=== PATIENT | male | born 1985 | race Caucasian/White ===

== ENCOUNTER 2019-10-24 11:49 | Emergency (ER) | payer OTHER ==
[~2019-10-24] VITALS: Ht 188 cm; Wt 122.5 kg
[~2019-10-24 11:49] MED LIST: OXYACE5T PO; RXOXYACE PO
[2019-10-24] MEDS ORDERED: IBUP600 PO (14:51)
[2019-10-24] MEDS ORDERED: Robaxin-750750 MG PO (14:51)
== END 2019-10-24 15:09 | disposition home or self-care (01) ==
LOC: ER 11:49
DX: S80.02XA Contusion of left knee, initial encounter (principal); S20.219A Contusion of unspecified front wall of thorax, initial encounter; V53.5XXA Driver of pick-up truck or van injured in collision with car, pick-up truck or van in traffic accident, initial encounter; Z88.5 Allergy status to narcotic agent; Z79.899 Other long term (current) drug therapy; Z79.891 Long term (current) use of opiate analgesic; J45.909 Unspecified asthma, uncomplicated; Z87.891 Personal history of nicotine dependence
CPT/HCPCS: 71250; 73562-LT; 99284-25

== ENCOUNTER 2021-04-30 13:05 | Emergency (ER) | payer OTHER ==
[~2021-04-30] VITALS: Ht 188 cm; Wt 120.2 kg
[~2021-04-30 13:05] MED LIST changes: +IBUP600 PO; +Robaxin-750750 MG PO
[2021-04-30 13:44] LABS: BASOPHILS ABSOLUTE AUTO 0.06 K/mm3 (0.00-0.23); BASOPHILS PERCENT AUTO 1 % (0-2); EOSINOPHILS PERCENT AUTO 3 % (0-6); Hematocrit 44.2 % (37.0-53.0); IMMATURE GRAN ABSOLUTE AUTO 0.02 K/mm3 (0.00-0.10); IMMATURE GRAN PERCENT AUTO 0 % (0-1); LYMPHOCYTES ABSOLUTE AUTO 2.59 K/mm3 (0.84-5.20); LYMPHOCYTES PERCENT AUTO 36 % (21-46); MONOCYTES ABSOLUTE AUTO 0.51 K/mm3 (0.16-1.47); MONOCYTES PERCENT AUTO 7 % (4-13); Mean Corpuscular HGB 28.2 pg (26.0-34.0); Mean Corpuscular HGB Conc 33.9 g/dL (31.5-36.5); Mean Corpuscular Volume 83 fL (80-100); NEUTROPHILS ABSOLUTE AUTO 3.81 K/mm3 (1.96-9.15); NEUTROPHILS PERCENT AUTO 53 % (41-73); Platelet Count 364 K/mm3 (150-400); RDW Standard Deviation 36.4 fL (35.1-46.3); Red Blood Cell Count 5.32 M/mm3 (4.30-5.90); White Blood Cell Count 7.19 K/mm3 (4.00-11.30)
[2021-04-30 14:00] LABS: Alanine Aminotransfer (ALT/SGP 43 U/L (12-78); Albumin, Blood 4.7 g/dL (3.4-5.0); Albumin/Globulin Ratio 1.3 (0.8-1.8); Alk Phos 79 U/L (50-136); Anion Gap 6 mmol/L (6-16); Aspartate Aminotrans (AST/SGOT 18 U/L (12-37); Bilirubin, Total 1.1 mg/dL (0.1-1.0); Blood Urea Nitrogen 10 mg/dL (8-24); Bun/Creatinine Ratio 12.3 (12.0-20.0); CO2, Blood 26 mmol/L (21-32); Calcium, Blood 9.1 mg/dL (8.5-10.1); Chloride, Blood 106 mmol/L (98-108); Creatinine, Blood 0.81 mg/dL (0.60-1.20); Globulin, Blood 3.6 g/dL (2.2-4.0); Glomerular Filtration Rate >60 (60-); Glucose, Blood 158 mg/dL (70-99); Sodium, Blood 138 mmol/L (136-145); Total Protein, Blood 8.3 g/dL (6.4-8.2); Troponin I <0.015 ng/mL (0.000-0.040)
[2021-04-30] MEDS ORDERED: PAROEX473 ML MM (15:30)
[2021-04-30] MEDS ORDERED: ALBU90OI INH (15:31)
== END 2021-04-30 16:45 | disposition home or self-care (01) ==
LOC: ER 13:05
PROVIDERS: Physician Assistant
DX: F41.9 Anxiety disorder, unspecified (principal); F17.220 Nicotine dependence, chewing tobacco, uncomplicated; Z88.5 Allergy status to narcotic agent; Z79.899 Other long term (current) drug therapy
CPT/HCPCS: 36415; 71046; 80053; 84484; 85025; 85379; 93005; 93010; 96374; 99284-25; J2060

== ENCOUNTER → 2022-05-19 | Outpatient (CLI) | payer OTHER ==
[~2022-05-19] MED LIST changes: +ALBU90OI INH; +PAROEX473 ML MM
[2022-05-19 16:54] LABS: BASOPHILS ABSOLUTE AUTO 0.06 K/mm3 (0.00-0.23); BASOPHILS PERCENT AUTO 1 % (0-2); EOSINOPHILS ABSOLUTE AUTO 0.16 K/mm3 (0.00-0.68); EOSINOPHILS PERCENT AUTO 2 % (0-6); Hematocrit 42.4 % (37.0-53.0); Hemoglobin 14.6 g/dL (13.5-17.5); IMMATURE GRAN ABSOLUTE AUTO 0.02 K/mm3 (0.00-0.10); IMMATURE GRAN PERCENT AUTO 0 % (0-1); LYMPHOCYTES ABSOLUTE AUTO 1.56 K/mm3 (0.84-5.20); LYMPHOCYTES PERCENT AUTO 22 % (21-46); MONOCYTES ABSOLUTE AUTO 0.42 K/mm3 (0.16-1.47); MONOCYTES PERCENT AUTO 6 % (4-13); Mean Corpuscular HGB 28.2 pg (26.0-34.0); Mean Corpuscular HGB Conc 34.4 g/dL (31.5-36.5); Mean Corpuscular Volume 82 fL (80-100); Mean Platelet Volume 9.4 fL (9.1-12.4); NEUTROPHILS ABSOLUTE AUTO 4.86 K/mm3 (1.96-9.15); NEUTROPHILS PERCENT AUTO 69 % (41-73); Platelet Count 357 K/mm3 (150-400); RDW Coefficient Variation 12.4 % (11.7-14.2); RDW Standard Deviation 36.8 fL (35.1-46.3); Red Blood Cell Count 5.18 M/mm3 (4.30-5.90); White Blood Cell Count 7.08 K/mm3 (4.00-11.30)
[2022-05-19 17:11] LABS: Albumin, Blood 4.5 g/dL (3.4-5.0); Albumin/Globulin Ratio 1.4 (0.8-1.8); Bilirubin, Total 0.7 mg/dL (0.1-1.0); Calcium, Blood 9.4 mg/dL (8.5-10.1); Globulin, Blood 3.3 g/dL (2.2-4.0); Potassium, Blood 3.5 mmol/L (3.5-5.5); Thyroid Stimulating Hormone 0.799 uIU/mL (0.360-4.800); Total Protein, Blood 7.8 g/dL (6.4-8.2)
== END | disposition home or self-care (01) ==
LOC: LAB 16:46 → LAB SHORT 16:46
PROVIDERS: Family Medicine
DX: R00.0 Tachycardia, unspecified (principal); R00.2 Palpitations
CPT/HCPCS: 80053; 84443; 84484; 85025; 85379

== ENCOUNTER 2023-02-27 17:45 | Emergency (ER) | payer OTHER ==
[~2023-02-27] VITALS: Ht 188 cm; Wt 117.9 kg
[2023-02-27 21:22] VITALS: BP 140/86
[2023-02-27] MEDS ORDERED: METOPROLOL SUCC25 MG PO (21:25)
== END 2023-02-28 01:19 | disposition home or self-care (01) ==
LOC: ER 17:45
DX: K40.90 Unilateral inguinal hernia, without obstruction or gangrene, not specified as recurrent (principal); J45.909 Unspecified asthma, uncomplicated; F17.220 Nicotine dependence, chewing tobacco, uncomplicated; Z88.5 Allergy status to narcotic agent; Z79.899 Other long term (current) drug therapy
CPT/HCPCS: 99283; A9270

== ENCOUNTER 2023-03-19 21:45 | Emergency (ER) | payer OTHER ==
[~2023-03-19] VITALS: Ht 188 cm; Wt 117.9 kg
[~2023-03-19 21:45] MED LIST changes: +METOPROLOL SUCC25 MG PO
[2023-03-19] MEDS ORDERED: DOCU100 PO (22:09)
[2023-03-19 22:34] LABS: BASOPHILS ABSOLUTE AUTO 0.08 K/mm3 (0.00-0.23); BASOPHILS PERCENT AUTO 1 % (0-2); EOSINOPHILS ABSOLUTE AUTO 0.36 K/mm3 (0.00-0.68); EOSINOPHILS PERCENT AUTO 4 % (0-6); Hematocrit 41.4 % (37.0-53.0); Hemoglobin 14.2 g/dL (13.5-17.5); IMMATURE GRAN ABSOLUTE AUTO 0.02 K/mm3 (0.00-0.10); IMMATURE GRAN PERCENT AUTO 0 % (0-1); LYMPHOCYTES ABSOLUTE AUTO 3.35 K/mm3 (0.84-5.20); LYMPHOCYTES PERCENT AUTO 38 % (21-46); MONOCYTES ABSOLUTE AUTO 0.72 K/mm3 (0.16-1.47); MONOCYTES PERCENT AUTO 8 % (4-13); Mean Corpuscular HGB 28.5 pg (26.0-34.0); Mean Corpuscular HGB Conc 34.3 g/dL (31.5-36.5); Mean Corpuscular Volume 83 fL (80-100); NEUTROPHILS ABSOLUTE AUTO 4.41 K/mm3 (1.96-9.15); NEUTROPHILS PERCENT AUTO 49 % (41-73); Platelet Count 331 K/mm3 (150-400); RDW Coefficient Variation 11.9 % (11.7-14.2); Red Blood Cell Count 4.99 M/mm3 (4.30-5.90); White Blood Cell Count 8.94 K/mm3 (4.00-11.30)
[2023-03-19 22:51] LABS: Albumin, Blood 4.3 g/dL (3.4-5.0); Albumin/Globulin Ratio 1.3 (0.8-1.8); Bilirubin, Total 0.5 mg/dL (0.1-1.0); Bun/Creatinine Ratio 14.8 (12.0-20.0); Calcium, Blood 8.8 mg/dL (8.5-10.1); Creatinine, Blood 0.74 mg/dL (0.60-1.20); Globulin, Blood 3.2 g/dL (2.2-4.0); Potassium, Blood 3.5 mmol/L (3.5-5.5); Total Protein, Blood 7.5 g/dL (6.4-8.2)
[2023-03-20 01:09] LABS: Source, Urine Clean Catch
[2023-03-20 01:23] LABS: Bilirubin, Urine Neg (Neg); Blood, Urine Neg (Neg); Glucose Qualitative, Urine Neg (Neg); Ketones, Urine Neg (Neg); Leukocyte Esterase, Urine Neg (Neg); Nitrite, Urine Neg (Neg); Protein, Urine 1+ (Neg); Urobilinogen, Urine NORM (Normal)
[2023-03-20 01:39] LABS: Appearance, Urine Clear (Clear); Color, Urine Yellow (P-Yellow)
[2023-03-20 03:34] VITALS: BP 116/69
== END 2023-03-20 03:30 | disposition home or self-care (01) ==
LOC: ER 21:45
PROVIDERS: Emergency Medicine
DX: K40.90 Unilateral inguinal hernia, without obstruction or gangrene, not specified as recurrent (principal); R10.9 Unspecified abdominal pain; Z88.5 Allergy status to narcotic agent; Z79.899 Other long term (current) drug therapy; J45.909 Unspecified asthma, uncomplicated; E78.5 Hyperlipidemia, unspecified; F17.220 Nicotine dependence, chewing tobacco, uncomplicated
CPT/HCPCS: 74177; 80053; 85025; 96374-59; 99284-25; J3010; Q9967

== ENCOUNTER 2023-07-17 06:27 | Day surgery (SDC) | payer OTHER ==
[~2023-07-17] VITALS: Ht 187 cm; Wt 115.3 kg
[2023-07-17] VITALS (21 sets, daily range): BP systolic 130–166; BP diastolic 77–123
[~2023-07-17 06:27] MED LIST changes: +DOCU100 PO
--- NOTE | 2023-07-17 11:51 | NUR ---
PT STATES HEARING MACHINE BEEPING AND BEING IN [place] IS MAKING ANXIETY WORSE . I SPOKE WITH [facility] IN DAY SURGERY AND SHE STATES BRING HIM OVER . HE IS EAGER TO HAVE AT BEDSIDE AND EAT A MEAL . HE DOES STATES HE IF FEELING MUCH BETTER
--- NOTE | 2023-07-17 12:49 | NUR ---
DISCHARGE PT A&OX4, VSS/RA, MARLYN PO, VOIDED, AMB SBA TO BRP/DRESSED SELF, ABD BINDER ON, DC INS PROVIDED TO PT AND [employer], BOTH REP UNDERSTANDING THOSE INSTRUCTIONS. LEFT VIA WC WITH VOL TO GO HOME WITH [employer], WITH ALL PERSONAL POSSESSIONS.
== END 2023-07-17 12:50 | disposition home or self-care (01) ==
LOC: ORSCMMR 06:27 → ORD 07:30 → ORSCMMR 12:50
PROVIDERS: Surgery
PROC: 8E0W4CZ Robotic Assisted Procedure of Trunk Region, Percutaneous Endoscopic Approach (ICD-10-PCS; principal; 2023-07-17 07:30)
PROC: 0YUA4JZ Supplement Bilateral Inguinal Region with Synthetic Substitute, Percutaneous Endoscopic Approach (ICD-10-PCS; principal; 2023-07-17 07:30)
DX: K40.20 Bilateral inguinal hernia, without obstruction or gangrene, not specified as recurrent (principal); I10 Essential (primary) hypertension; Z79.899 Other long term (current) drug therapy
CPT/HCPCS: A9270; C1781; J0360; J1100; J1170; J1885; J2060; J2405; J2704; J3010; J7120

== ENCOUNTER 2024-08-02 15:16 | Emergency (ER) | payer OTHER ==
[~2024-08-02] VITALS: Ht 185.4 cm; Wt 106.6 kg
[2024-08-02] MEDS ORDERED: FAMO20 PO (15:53)
[2024-08-02] MEDS ORDERED: PRED20 PO (15:53)
[2024-08-02] MEDS ORDERED: EPIPEN0.3 MG/0.3 IM (15:53)
[2024-08-02] MEDS ORDERED: BENADRYL25 MG PO (15:53)
[2024-08-02 16:40] VITALS: BP 137/72
== END 2024-08-02 17:12 | disposition home or self-care (01) ==
LOC: ER 15:16
DX: T63.441A Toxic effect of venom of bees, accidental (unintentional), initial encounter (principal); T78.40XA Allergy, unspecified, initial encounter; F17.220 Nicotine dependence, chewing tobacco, uncomplicated; J45.909 Unspecified asthma, uncomplicated; E78.5 Hyperlipidemia, unspecified; Z79.899 Other long term (current) drug therapy; Z88.5 Allergy status to narcotic agent
CPT/HCPCS: 99284

== ENCOUNTER 2025-06-09 20:09 | Emergency (ER) | payer OTHER ==
[~2025-06-09] VITALS: Ht 188 cm; Wt 104.3 kg
[~2025-06-09 20:09] MED LIST changes: +BENADRYL25 MG PO; +EPIPEN0.3 MG/0.3 IM; +FAMO20 PO; +PRED20 PO
[2025-06-09 20:25] VITALS: BP 146/102
[2025-06-09] MEDS ORDERED: CEPH500 PO (20:39)
[2025-06-09] MEDS ORDERED: EPIPEN0.3 MG/0.3 IM (20:40)
== END 2025-06-09 20:51 | disposition home or self-care (01) ==
LOC: ER 20:09
DX: T63.461A Toxic effect of venom of wasps, accidental (unintentional), initial encounter (principal); R22.1 Localized swelling, mass and lump, neck; R22.31 Localized swelling, mass and lump, right upper limb; L03.90 Cellulitis, unspecified
CPT/HCPCS: 99282; A9270

== ENCOUNTER 2025-06-13 17:14 | Emergency (ER) | payer OTHER ==
[~2025-06-13] VITALS: Ht 188 cm; Wt 104.3 kg
[~2025-06-13 17:14] MED LIST changes: +CEPH500 PO
[2025-06-13] MEDS ORDERED: NS 1,000 ML IV SCH (18:05)
[2025-06-13 18:30] LABS: BASOPHILS ABSOLUTE AUTO 0.06 K/mm3 (0.00-0.23); BASOPHILS PERCENT AUTO 1 % (0-2); EOSINOPHILS ABSOLUTE AUTO 0.10 K/mm3 (0.00-0.68); EOSINOPHILS PERCENT AUTO 1 % (0-6); Hematocrit 42.2 % (37.0-53.0); Hemoglobin 14.7 g/dL (13.5-17.5); IMMATURE GRAN ABSOLUTE AUTO 0.02 K/mm3 (0.00-0.10); IMMATURE GRAN PERCENT AUTO 0 % (0-1); LYMPHOCYTES ABSOLUTE AUTO 1.39 K/mm3 (0.84-5.20); LYMPHOCYTES PERCENT AUTO 17 % (21-46); MONOCYTES ABSOLUTE AUTO 0.56 K/mm3 (0.16-1.47); MONOCYTES PERCENT AUTO 7 % (4-13); Mean Corpuscular HGB Conc 34.8 g/dL (31.5-36.5); Mean Corpuscular Volume 82 fL (80-100); NEUTROPHILS ABSOLUTE AUTO 5.94 K/mm3 (1.96-9.15); NEUTROPHILS PERCENT AUTO 74 % (41-73); NRBC ABSOLUTE 0.00 K/mm3 (0.00-0.02); NRBC Auto 0.0 /100 WBC (0.0-0.2); Platelet Count 303 K/mm3 (150-400); RDW Coefficient Variation 12.1 % (11.7-14.2); RDW Standard Deviation 36.1 fL (35.1-46.3)
[2025-06-13 18:31] LABS: Source, Urine Clean Catch
[2025-06-13 18:34] LABS: Bilirubin, Urine Neg (Neg); Color, Urine Yellow (P-Yellow); Glucose Qualitative, Urine Neg (Neg); Ketones, Urine Neg (Neg); Leukocyte Esterase, Urine Neg (Neg); Protein, Urine Neg (Neg); Specific Gravity, Urine 1.010 (1.003-1.022); Urobilinogen, Urine NORM (Normal)
[2025-06-13 18:58] LABS: Anion Gap 7.0 mmol/L (3-11); Blood Urea Nitrogen 13.0 mg/dL (8-24); CO2, Blood 26.0 mmol/L (21-32); Calcium, Blood 9.1 mg/dL (8.5-10.1); Chloride, Blood 110.0 mmol/L (98-108); Creatinine, Blood 0.74 mg/dL (0.60-1.20); Glucose, Blood 112.0 mg/dL (70-99); Magnesium, Blood 1.9 mg/dL (1.6-2.4); Potassium, Blood 3.6 mmol/L (3.5-5.5); Sodium, Blood 139.0 mmol/L (136-145); Thyroid Stimulating Hormone 0.816 uIU/mL (0.360-4.800)
[2025-06-13 21:07] VITALS: BP 151/88
== END 2025-06-13 21:07 | disposition home or self-care (01) ==
LOC: ER 17:14
PROVIDERS: Student in an Organized Health Care Education/Training Program
DX: R00.2 Palpitations (principal); R53.83 Other fatigue; R07.89 Other chest pain; J45.909 Unspecified asthma, uncomplicated; E78.5 Hyperlipidemia, unspecified; F17.220 Nicotine dependence, chewing tobacco, uncomplicated; Z91.030 Bee allergy status; Z88.5 Allergy status to narcotic agent; Z79.52 Long term (current) use of systemic steroids; Z79.899 Other long term (current) drug therapy
CPT/HCPCS: 80048; 81003; 83735; 84443; 84484; 85025; J7030